=== PATIENT | female | born 1950 | race Caucasian/White ===

== ENCOUNTER 2024-06-23 05:37 | Inpatient (IN) | payer BC, MEDICARE ==
[2024-06-23 06:21] LABS: Basophils % (A) 0 %; Eosinophils # (A) 0.1 k/uL (0-0.7); Eosinophils % (A) 1 %; HCT 35.9 % (34.0-46.0); HGB 11.1 gm/dL (11.4-16.0); Hypochromasia Slight; Lymphocytes # (A) 1.1 k/uL (1.0-4.8); Lymphocytes % (A) 11 %; MCH 27.6 pg (25.0-35.0); MCHC 30.8 g/dL (31.0-37.0); MCV 89.5 fL (80.0-100.0); Mean Platelet Volume 6.7; Monocytes # (A) 0.5 k/uL (0-1.0); Monocytes % (A) 5 %; Neutrophils # (A) 8.2 k/uL (1.3-7.7); Neutrophils % (A) 82 %; Platelet Count 487 k/uL (150-450); RBC 4.01 m/uL (3.80-5.40); RDW 13.6 % (11.5-15.5); WBC 10.1 k/uL (3.8-10.6)
--- NOTE | 2024-06-23 06:25 | ED ---
SOB HPI - General Source: patient Mode of arrival: EMS Limitations: no limitations - History of Present Illness MD Complaint: shortness of breath Onset/Timin -: week(s) Severity scale (1-10): 0 Consistency: constant Improves With: nothing Worsens With: nothing Associated Symptoms: denies other symptoms Treatments Prior to Arrival: none - Related Data Home Oxygen Therapy: No <Jalil Iyer - Last Filed: 06/23/24 06:49> <Yasir Salcido - Last Filed: 06/23/24 08:22> - General Chief Complaint: Shortness of Breath Stated Complaint: SOB Time Seen by Provider: 06/23/24 05:47 - History of Present Illness Initial Comments: This patient is a 74-year-old woman who presents with complaint that she has been feeling short of breath for approximately a week. Patient states that she had a colonoscopy at [facility] about 9 or 10 days ago. She states that she just has not felt right after that procedure. She she feels shortness of breath but denies fever or chills, cough, chest pain. She has noted a little bit of ankle swelling bilaterally since having the procedure. Patient does have history of smoking, currently at about 1/2 pack of cigarettes per day she states that she used to smoke more in the past. (Jalil Iyer) - Related Data Allergies Allergy/AdvReac Type Severity Reaction Status Date / Time No Known Allergies Allergy Verified 06/23/24 05:45 Review of Systems ROS Other: All systems not noted in ROS Statement are negative. Constitutional: Denies: fever, chills, weakness ENT: Denies: congestion Respiratory: Reports: dyspnea. Denies: cough, hemoptysis Cardiovascular: Reports: edema. Denies: chest pain, palpitations, orthopnea, syncope Gastrointestinal: Denies: abdominal pain, vomiting, diarrhea, melena, hematochezia Genitourinary: Denies: dysuria, hematuria Musculoskeletal: Denies: back pain Skin: Denies: rash Neurological: Denies: headache, weakness <Jalil Iyer - Last Filed: 06/23/24 06:49> ROS Other: All systems not noted in ROS Statement are negative. <Yasir Salcido - Last Filed: 06/23/24 08:22> ROS Statement: Those systems with pertinent positive or pertinent negative responses have been documented in the HPI. Past Medical History Past Medical History: Coronary Artery Disease (CAD) History of Any Multi-Drug Resistant Organisms: None Reported Past Psychological History: No Psychological Hx Reported Smoking Status: Current some day smoker Past Alcohol Use History: None Reported Past Drug Use History: None Reported <Jalil Iyer - Last Filed: 06/23/24 06:49> General Exam Limitations: no limitations General appearance: alert, in no apparent distress Head exam: Present: atraumatic, normocephalic Eye exam: Present: normal appearance. Absent: scleral icterus, conjunctival injection Neck exam: Present: normal inspection Respiratory exam: Present: wheezes, decreased breath sounds. Absent: respiratory distress, rales, rhonchi, stridor, chest wall tenderness, accessory muscle use, prolonged expiratory Cardiovascular Exam: Present: regular rate, normal rhythm, normal heart sounds. Absent: systolic murmur, diastolic murmur, rubs, gallop GI/Abdominal exam: Present: soft. Absent: distended, tenderness, guarding, rebound, rigid, mass Extremities exam: Present: normal inspection, normal capillary refill. Absent: pedal edema, calf tenderness Back exam: Present: normal inspection. Absent: CVA tenderness (R), CVA tenderness (L) Neurological exam: Present: alert Skin exam: Present: warm, dry, intact, normal color. Absent: rash <Jalil Iyer Last Filed: 06/23/24 06:49> Course Vital Signs 06/23/24 06/23/24 06/23/24 05:38 06:53 07:00 Temperature 98.1 F Pulse Rate 83 79 77 Respiratory 24 Rate Blood Pressure 175/90 O2 Sat by Pulse 98 Oximetry 06/23/24 06/23/24 07:57 07:58 Temperature Pulse Rate 90 Respiratory 16 Rate Blood Pressure 139/68 O2 Sat by Pulse 91 L 95 Oximetry Medical Decision Making - Lab Data Result diagrams: 06/23/24 06:14 06/23/24 06:14 - EKG Data -: EKG Interpreted by Ut EKG shows normal: sinus rhythm, axis (Normal), intervals (Normal), QRS complexes (Normal), ST-T waves (Normal) Rate: normal (Rate 77 bpm) <JaylonJalil Last Filed: 06/23/24 06:49> - Lab Data Result diagrams: 06/23/24 06:14 06/23/24 06:14 <Yasir Salcido - Last Filed: 06/23/24 08:22> - Medical Decision Making The patient had chest x-ray that I interpreted as being negative for acute infiltrate, pneumothorax, congestive heart failure. The x-ray does demonstrate COPD. (Jalil Iyer) Was pt. sent in by a medical professional or institution (MATTI Hoover, SALES CLERK SUPERVISOR, urgent care, hospital, or snf...) When possible be specific @ -No Did you speak to anyone other than the patient for history (EMS, parent, family, police, friend...)? What history was obtained from this source @ -No Did you review nursing and triage notes (agree or disagree)? Why? @ -I reviewed and agree with nursing and triage notes Were old charts reviewed (outside hosp., previous admission, EMS record, old EKG, old radiological studies, urgent care reports/EKG's, snf records)? Report findings @ -No old charts were reviewed Differential Dyspnea: Coronary syndrome, arrhythmia, tamponade, asthma, COPD, pulmonary embolism, pneumonia, pneumothorax, pulmonary effusion, anaphylaxis, diabetic ketoacidosis, flailed chest, pulmonary contusion, diaphragmatic rupture, anemia, neuromus cular, this is not meant to be an all-inclusive list. EKG interpreted by me (3pts min.). @ -As above X-rays interpreted by me (1pt min.). @ -None done CT interpreted by me (1pt min.). @CT angiography is negative for pulmonary embolism, shows emphysema as well as moderate fluid overload and right lower lung mass. U/S interpreted by me (1pt. min.). @ -None done What testing was considered but not performed or refused? (CT, X-rays, U/S, labs)? Why? @ -None What meds were considered but not given or refused? Why? @ -None Did you discuss the management of the patient with other professionals (professionals i.e. MATTI Hoover, SALES CLERK SUPERVISOR, lab, RT, psych nurse, social work administrator, intelligence director, teacher, chairman president and chief executive officer, director of casework department)? Give summary @ Dr. Morel Was smoking cessation discussed for >3mins.? @ -No Was critical care preformed (if so, how long)? @ -No Were there social determinants of health that impacted care today? How? (Homelessness, low income, unemployed, alcoholism, drug addiction, transpor tation, low edu. Level, literacy, decrease access to med. care, ch[facility], rehab)? @ -No Was there de-escalation of care discussed even if they declined (Discuss DNR or withdrawal of care, Hospice)? DNR status @ -No What co-morbidities impacted this encounter? (DM, HTN, Smoking, COPD, CAD, Cancer, CVA, ARF, Chemo, Hep., AIDS, mental health diagnosis, sleep apnea, morbid obesity)? @ -None Was patient admitted / discharged? Hospital course, mention meds given and route, prescriptions, significant lab abnormalities, going to OR and other pertinent info. @ -Care was signed out at shift change awaiting CT angiography results are negative for pulmonary embolism does show COPD CHF and lung mass. Patient has an elevated troponin which will require trending. She has an elevated BNP and evidence of CHF as well as COPD. Should be admitted for both COPD, CHF as well as this lung mass. Cardiology and pulmonology placed on consult. Undiagnosed new problem with uncertain prognosis? @ -No Drug Therapy requiring intensive monitoring for toxicity (Heparin, Nitro, Insulin, Cardizem)? @ -No Were any procedures done? @ -No Diagnosis/symptom? @ -COPD, CHF, lung mass Acute, or Chronic, or Acute on Chronic? @ -acute Uncomplicated (without systemic symptoms) or Complicated (systemic symptoms)? @ -Default Side effects of treatment? @ -No Exacerbation, Progression, or Severe Exacerbation? @ -No Poses a threat to life or bodily function? How? (Chest pain, USA, MD, pneumonia, PE, COPD, DKA, ARF, appy, cholecystitis, CVA, Diverticulitis, Homicidal, Suicidal, threat to staff... and all critical care pts) @ -[Yes, respiratory failure, COPD, CHF (Yasir Salcido) - Lab Data Lab Results 06/23/24 06/23/24 06/23/24 Range/Units 06:14 06:14 06:14 WBC 10.1 (3.8-10.6) k/uL RBC 4.01 (3.80-5.40) m/uL Hgb 11.1 L (11.4-16.0) gm/dL Hct 35.9 (34.0-46.0) % MCV 89.5 (80.0-100.0) fL MCH 27.6 (25.0-35.0) pg MCHC 30.8 L (31.0-37.0) g/dL RDW 13.6 (11.5-15.5) % Plt Count 487 H (150-450) k/uL MPV 6.7 Neutrophils % 82 % Lymphocytes % 11 % Monocytes % 5 % Eosinophils % 1 % Basophils % 0 % Neutrophils # 8.2 H (1.3-7.7) k/uL Lymphocytes # 1.1 (1.0-4.8) k/uL Monocytes # 0.5 (0-1.0) k/uL Eosinophils # 0.1 (0-0.7) k/uL Basophils # 0.0 (0-0.2) k/uL Hypochromasia Slight PT 10.2 (10.0-12.5) sec INR 0.9 (<1.2) APTT 23.3 (22.0-30.0) sec D-Dimer 2.08 H (<0.60) mg/L FEU Sodium 137 (137-145) mmol/L Potassium 3.8 (3.5-5.1) mmol/L Chloride 101 (98-107) mmol/L Carbon Dioxide 35 H (22-30) mmol/L Anion Gap 1 mmol/L BUN 12 (7-17) mg/dL Creatinine 0.58 (0.52-1.04) mg/dL Est GFR (CKD-EPI)AfAm >90 (>60 ml/min/1.73 sqM) Est GFR (CKD-EPI)NonAf >90 (>60 ml/min/1.73 sqM) Glucose 94 (74-99) mg/dL Plasma Lactic Acid Alfred (0.7-2.0) mmol/L Calcium 8.4 (8.4-10.2) mg/dL Magnesium 1.3 L (1.6-2.3) mg/dL Total Bilirubin 0.5 (0.2-1.3) mg/dL AST 44 H (14-36) U/L ALT 39 H (4-34) U/L Alkaline Phosphatase 68 (38-126) U/L Troponin I (0.000-0.034) ng/mL NT-Pro-B Natriuret Pep 3640 pg/mL Total Protein 5.3 L (6.3-8.2) g/dL Albumin 2.9 L (3.5-5.0) g/dL 06/23/24 06/23/24 Range/Units 06:14 06:14 WBC (3.8-10.6) k/uL RBC (3.80-5.40) m/uL Hgb (11.4-16.0) gm/dL Hct (34.0-46.0) % MCV (80.0-100.0) fL MCH (25.0-35.0) pg MCHC (31.0-37.0) g/dL RDW (11.5-15.5) % Plt Count (150-450) k/uL MPV Neutrophils % % Lymphocytes % % Monocytes % % Eosinophils % % Basophils % % Neutrophils # (1.3-7.7) k/uL Lymphocytes # (1.0-4.8) k/uL Monocytes # (0-1.0) k/uL Eosinophils # (0-0.7) k/uL Basophils # (0-0.2) k/uL Hypochromasia PT (10.0-12.5) sec INR (<1.2) APTT (22.0-30.0) sec D-Dimer (<0.60) mg/L FEU Sodium (137-145) mmol/L Potassium (3.5-5.1) mmol/L Chloride (98-107) mmol/L Carbon Dioxide (22-30) mmol/L Anion Gap mmol/L BUN (7-17) mg/dL Creatinine (0.52-1.04) mg/dL Est GFR (CKD-EPI)AfAm (>60 ml/min/1.73 sqM) Est GFR (CKD-EPI)NonAf (>60 ml/min/1.73 sqM) Glucose (74-99) mg/dL Plasma Lactic Acid Alfred 0.8 (0.7-2.0) mmol/L Calcium (8.4-10.2) mg/dL Magnesium (1.6-2.3) mg/dL Total Bilirubin (0.2-1.3) mg/dL AST (14-36) U/L ALT (4-34) U/L Alkaline Phosphatase (38-126) U/L Troponin I 0.047 H* (0.000-0.034) ng/mL NT-Pro-B Natriuret Pep pg/mL Total Protein (6.3-8.2) g/dL Albumin (3.5-5.0) g/dL Disposition <Jalil Iyer - Last Filed: 06/23/24 06:49> Is patient prescribed a controlled substance at d/c from ED?: No Time of Disposition: 08:22 <Yasir Salcido - Last Filed: 06/23/24 08:22> Clinical Impression: Congestive heart failure, Acute exacerbation of chronic obstructive pulmonary disease Disposition: ADMITTED IP TO THIS HOSP Condition: Stable Referrals: None,Stated [Primary Care Provider] - 1-2 days
[2024-06-23 06:32] LABS: ALT 39 U/L (4-34); AST 44 U/L (14-36); African American GFR (CKD) >90 (>60 ml/min/1.73 sqM); Albumin 2.9 g/dL (3.5-5.0); Alkaline Phosphatase 68 U/L (38-126); Anion Gap 1 mmol/L; Blood Urea Nitrogen 12 mg/dL (7-17); Calcium 8.4 mg/dL (8.4-10.2); Carbon Dioxide 35 mmol/L (22-30); Chloride 101 mmol/L (98-107); Glucose 94 mg/dL (74-99); Magnesium 1.3 mg/dL (1.6-2.3); Non-African American GFR(CKD) >90 (>60 ml/min/1.73 sqM); Potassium 3.8 mmol/L (3.5-5.1); Sodium 137 mmol/L (137-145); Total Bilirubin 0.5 mg/dL (0.2-1.3); Total Protein 5.3 g/dL (6.3-8.2)
[2024-06-23 06:35] LABS: INR 0.9 (<1.2); Partial Thromboplastin Time 23.3 sec (22.0-30.0); Prothrombin Time 10.2 sec (10.0-12.5)
[2024-06-23 06:41] LABS: NT-Pro-B-Type Natriuretic Pept 3640 pg/mL
[2024-06-23] MEDS: ALBUTEROL NEBULIZED 2.5 MG/3 ML INHALATION STA (06:51)
[2024-06-23] MEDS: IPRATROPIUM 0.5 MG/2.5 ML NEBU INHALATION STA (06:52)
--- NOTE | 2024-06-23 06:57 | XR ---
EXAMINATION TYPE: XR chest 2V DATE OF EXAM: 06/23/2024 COMPARISON: NONE HISTORY: Difficulty in breathing. TECHNIQUE: Frontal and lateral views of the chest are obtained. FINDINGS: There is mild cardiomegaly with small to tiny bilateral pleural effusions. Overlying tiny rnal wires and mediastinal clips are present. No suspicious focal airspace opacity or pneumothorax se en bilaterally. The osseous structures are intact. IMPRESSION: Findings consistent with CHF exacerbation/fluid overload state. [facility], , 06/23/2024 6:54 AM
[2024-06-23] MEDS: NITROGLYCERIN SL TABS 0.4 MG TAB SUBLINGUAL STA (07:01)
[2024-06-23] MEDS: FUROSEMIDE 10 MG/ML 2 ML VIAL IV STA (07:04)
--- NOTE | 2024-06-23 07:59 | CT ---
EXAMINATION TYPE: CT chest angio for PE DATE OF EXAM: 06/23/2024 COMPARISON: Radiographs same day HISTORY: 74-year-old female with shortness of breath, Dyspnea, possible pe TECHNIQUE: Contiguous axial scanning of the chest performed with IV Contrast, patient injected with 1 00 ml mL of Isovue 370. Coronal/sagittal MIP reconstructions performed. CT DLP: 166.8 mGycm Automated exposure control for dose reduction was used. FINDINGS: Median sternotomy wires are present post CABG changes. There is prominent generalized anasarca changes with body wall edema. Some additional edema within th e anterior mediastinal fat Heart is normal size without flattening of the interventricular septum. There is some refluxing contr ast into the IVC and hepatic veins. Scattered [id number] atherosclerotic calcifications throughout the thoracic aorta with conventi onal arch vessel branching anatomy. No progressive lymphadenopathy by size criteria. Satisfactory opacification of the pulmonary arterial system without evidence for pulmonary embolus. Advanced emphysematous change. Small bilateral pleural effusions with some adjacent atelectasis at th e costophrenic angles. There is a spiculated appearing nodule posterior basilar right lower lobe measuring 2.0 cm for which neoplasm should be excluded. Additional anasarca changes throughout the visualized upper abdomen. Severe atherosclerotic calcifica tions at the SMA. No enhancing lumen is identified. Bones: No osseous destructive process. IMPRESSION: 1. NO EVIDENCE FOR PULMONARY EMBOLUS. 2. 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 BACKGROUND COPD WITH SEVERE EMPHYSEMA. 3 MARKED GENERALIZED ANASARCA CHANGE ALONG WITH SMALL BILATERAL PLEURAL EFFUSIONS. CORRELATE FOR FLUI D OVERLOAD STATE/MILD CHF. 4. ATHEROSCLEROTIC CALCIFICATIONS CAUSING POSSIBLE SEVERE STENOSIS OR OCCLUSION AT THE SMA INCIDENTAL LY SEEN. [facility], , 06/23/2024 7:57 AM
[2024-06-23] MEDS ORDERED: NALOXONE 0.4 MG/ML 1 ML VIAL IVP PRN (08:16)
[2024-06-23] MEDS ORDERED: IPRATROPIUM-ALBUTEROL 3 ML NEB INHALATION PRN (08:16)
[2024-06-23] MEDS ORDERED: ACETAMINOPHEN TAB 325 MG TAB PO PRN (08:16)
[2024-06-23] MEDS: AZITHROMYCIN 500 MG TAB PO SCH (08:38)
--- NOTE | 2024-06-23 10:00 | P.HPIM ---
History of Present Illness 74-year-old female came in with complaints of shortness of breath has been going on for about a week on and off. Patient denying orthopnea paroxysmal nocturnal dyspnea. Patient does smoke presently smokes about 10 cigarettes/day. Clinical exam patient does not have any significant wheezing although diminished air entry to bilateral lung patel. Patient had a CT of the chest which showed bilateral pleural effusions mild pulmonary edema patient has a BNP of 43,000. 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 Patient is also found to have a 2 cm nodule/mass in the lung. No pneumonia on the chest x- ray or CT of the chest. Patient does not use any oxygen at home presently on 2 L of oxygen here REVIEW OF SYSTEMS: All other systems are negative except those mentioned in the HPI PHYSICAL EXAMINATION: GENERAL: The patient is alert and oriented x3, not in any acute distress. Thin built female HEENT: Pupils are round and equally reacting to light. EOMI. No scleral icterus. No conjunctival pallor. Normocephalic, atraumatic. No pharyngeal erythema. No thyromegaly. CARDIOVASCULAR: S1 and S2 present. No murmurs, rubs, or gallops. PULMONARY: Chest is clear to auscultation, no wheezing or crackles. Diminished air entry to bilateral lung patel. ABDOMEN: Soft, nontender, nondistended, normoactive bowel sounds. No palpable organomegaly. MUSCULOSKELETAL: No joint swelling or deformity. EXTREMITIES: No cyanosis, clubbing, or pedal edema. NEUROLOGICAL: Gross neurological examination did not reveal any focal deficits. SKIN: No rashes. Assessment and plan -Acute hypoxemia: Possibly of congestive heart failure mild acute exacerbation cardiology evaluate the patient on the liberation of echocardiogram to c ardiology patient started on 20 mg of Lasix twice a day which will be continued as there is a low possibility of COPD patient will be switched to oral steroids continue with inhalational treatments. -2 cm nodule/mass pulmonary was consulted for this reason although patient was made aware of this nodule at [facility] -Coronary disease patient will be resumed on home medications -Mild elevation of troponin second set of troponin is within normal limits possibility of type I myocardial infarction or type I NSTEMI cannot be ruled out further management as per cardiology -He continues: Counseling was provided DVT prophylaxis: Lovenox text Past Medical History Past Medical History: Coronary Artery Disease (CAD) History of Any Multi-Drug Resistant Organisms: None Reported Past Psychological History: No Psychological Hx Reported Smoking Status: Current some day smoker Past Alcohol Use History: None Reported Past Drug Use History: None Reported Medications and Allergies Home Medications Medication Instructions Recorded Confirmed Type Aspirin EC [Ecotrin Low Dose] 81 mg PO DAILY 06/23/24 06/23/24 History Atorvastatin Calcium [Lipitor] 80 mg PO HS 06/23/24 06/23/24 History Clopidogrel [Plavix] 75 mg PO DAILY 06/23/24 06/23/24 History Losartan [Cozaar] 50 mg PO DAILY 06/23/24 06/23/24 History Metoprolol Tartrate [Lopressor] 50 mg PO BID 06/23/24 06/23/24 History Pantoprazole [Protonix] 40 mg PO DAILY 06/23/24 06/23/24 History Allergies Allergy/AdvReac Type Severity Reaction Status Date / Time No Known Allergies Allergy Verified 06/23/24 09:03 Physical Exam Vitals: Vital Signs Temp Pulse Resp BP Pulse Ox 06/23/24 09:19 95 18 131/82 96 06/23/24 07:58 95 06/23/24 07:57 90 16 139/68 91 L 06/23/24 07:00 77 06/23/24 06:53 79 06/23/24 05:38 98.1 F 83 24 175/90 98 Intake and Output 06/22/24 06/23/24 06/23/24 22:59 06:59 14:59 Other: Weight 37.648 kg Results CBC & Chem 7: 06/23/24 06:14 06/23/24 06:14 Labs: Abnormal Lab Results - Last 24 Hours (Table) 06/23/24 06/23/24 06/23/24 Range/Units 06:14 06:14 06:14 Hgb 11.1 L (11.4-16.0) gm/dL MCHC 30.8 L (31.0-37.0) g/dL Plt Count 487 H (150-450) k/uL Neutrophils # 8.2 H (1.3-7.7) k/uL D-Dimer 2.08 H (<0.60) mg/L FEU Carbon Dioxide 35 H (22-30) mmol/L Magnesium 1.3 L (1.6-2.3) mg/dL AST 44 H (14-36) U/L ALT 39 H (4-34) U/L Troponin I (0.000-0.034) ng/mL Total Protein 5.3 L (6.3-8.2) g/dL Albumin 2.9 L (3.5-5.0) g/dL 06/23/24 Range/Units 06:14 Hgb (11.4-16.0) gm/dL MCHC (31.0-37.0) g/dL Plt Count (150-450) k/uL Neutrophils # (1.3-7.7) k/uL D-Dimer (<0.60) mg/L FEU Carbon Dioxide (22-30) mmol/L Magnesium (1.6-2.3) mg/dL AST (14-36) U/L ALT (4-34) U/L Troponin I 0.047 H* (0.000-0.034) ng/mL Total Protein (6.3-8.2) g/dL Albumin (3.5-5.0) g/dL
[2024-06-23] MEDS: ASPIRIN 81 MG PO SCH (10:27)
[2024-06-23] MEDS: METOPROLOL TARTRATE 50 MG TAB PO SCH (10:27)
[2024-06-23] MEDS: LOSARTAN 50 MG TAB PO SCH (10:27)
[2024-06-23] MEDS: PANTOPRAZOLE 40 MG TABLET PO SCH (10:58)
[2024-06-23] MEDS: IPRATROPIUM-ALBUTEROL 3 ML NEB INHALATION SCH (11:49)
[2024-06-23] MEDS ORDERED: methylPREDNISolone SOD SUCCI 125 MG/2 ML VIAL IV SCH (12:00)
--- NOTE | 2024-06-23 13:14 | CDI ---
Documentation Clarification Form Date: 06/23/2024 01:01:44 PM From: Lashaun Ya RN CCDS Phone: [phone] Admit Date: 06/23/2024 08:17:00 AM Patient Name: Kalina Brink Visit Number: [id number] Discharge Date: ATTENTION: The Clinical Documentation Specialists (CDI) and [facility] Coding Staff appreciate your assistance in clarifying documentation. Please respond to the clarification below the line at the bottom and electronically sign. The CDI & [facility] Coding staff will review the response and follow-up if needed. Please note: Queries are made part of the Legal Health Record. If you have any questions, please contact the author of this message via ITS. Dr. Keyona Morel Your patient has hypoxemia documented in the HP, 06/23. Based on this information and the findings below, is there an additional diagnosis that is clinically appropriate for this patient? History/Risk Factors: Tobacco use: History of smoking, currently at about pack of cigarettes per day she states that she used to smoke more in the past Clinical Indicators: Vital signs: 06/23 07:57 B/P 139/68; HR 90; RR 16; SpO2 91% ra 06/23 07:58 SpO2 95% 3L nasal cannula Lung/Breathing assessment: 06/23, HP: Chest is clear to auscultation, no wheezing or crackles. Diminished air entry to bilateral lung patel. Treatment: Prednisone po daily Breathing tx 06/23 Ventolin Inhalation x1; 06/23 Atrovent Nebulized Inhalation x 1; 06/23 Duoneb Inhalation Q2H PRN; 06/23 Duoneb Inhalation QID JACK; O2: VIA Nasal cannula 3 2 L Is there an additional diagnosis that is clinically appropriate for this patient? [ ] Acute Hypoxic Respiratory Failure [x ] No additional diagnosis/not clinically significant [ ] Other Diagnosis, please specify [ ] Unable to determine (Template Last Revised: August 2023) MTDD
--- NOTE | 2024-06-23 13:15 | P.CRDCN ---
History of Present Illness History of present illness: HISTORY OF PRESENT ILLNESS: This is a 74-year-old female with a past medical history significant for coronary artery disease with previous stenting and CABG, hypertension, hyperlipidemia, and COPD. Patient follows with a precision inspector out of town, Dr. Bran Brink at [facility]. We have been asked to see the patient in consultation for CHF. Patient examined at the bedside. Patient presented to the hospital with a chief complaint of shortness of breath. Patient states she has been feeling short of breath for approximately a day and a half. She reports chills but no fever. She denies any chest pain or pressure. Denies any dizziness or lightheadedness. The patient is a current cigarette smoker and smokes about a half a pack per day. DIAGNOSTICS: - EKG reveals sinus mechanism with no signs of acute ischemia. Nonspecific ST-T wave changes. - Chest xray findings consistent with CHF exacerbation/fluid overload state - Chest CTA: Negative for pulmonary embolism. 2 cm right lower lobe nodule, marked generalized anasarca with small bilateral pleural effusions. - Laboratory data: WBC 10.1. Hemoglobin 11.1. Platelet count 487. D-dimer 2.08. Sodium 137. Potassium 3.8. BUN 12. Creatinine 0.58. Troponin 0.047. 0.031. proBNP 3640. - Current home cardiac medications include aspirin 81 mg daily, Plavix 75 mg daily, losartan 50 mg daily, Lipitor 80 mg at night, metoprolol tartrate 50 mg twice a day -No previous echocardiogram, stress test, or cardiac catheterization available in EMR for review REVIEW OF SYSTEMS: At the time of my exam: CONSTITUTIONAL: Denies fever or chills. HEENT: Denies blurred vision, vision changes, or eye pain. Denies hemoptysis CARDIOVASCULAR: Denies chest pain. Denies orthopnea. Denies PND. Denies palpitations RESPIRATORY: Denies shortness of breath. GASTROINTESTINAL: Denies abdominal pain. Denies nausea or vomiting. HEMATOLOGIC: Denies bleeding disorders. GENITOURINARY: Denies any blood in urine. SKIN: Denies pruitis. Denies rash. PHYSICAL EXAM: VITAL SIGNS: Reviewed. GENERAL: Well-developed in no acute distress. HEENT: Head is normocephalic. Pupils are equal, round. Sclerae anicteric. Mucous membranes of the mouth are moist. Neck supple. No JVD or thyromegaly LUNGS: Respirations even and unlabored. Lungs diminished with fine crackles at the bases HEART: Regular rate and rhythm. S1 and S2 heard. ABDOMEN: Soft. Nondistended. Nontender. EXTREMITIES: Normal range of motion. No clubbing or cyanosis. Peripheral pulses intact. Trace bilateral lower extremity edema NEUROLOGIC: Awake and alert. Oriented x 3. ASSESSMENT: Shortness of breath Mild acute congestive heart failure, type unknown, echo pending 2 cm right lower lobe lung nodule Minimally elevated troponin, type II NM secondary to oxygen supply/demand mismatch, no evidence of acute coronary syndrome Coronary artery disease with previous stenting and CABG Hypertension Hyperlipidemia COPD Nicotine dependence, patient smokes half a pack per day PLAN: Obtain 2D echo to assess cardiac structure and function Continue IV Lasix 20 mg every 12 hours Daily weights, accurate intake and output, and monitoring of kidney function Resume home cardiac medications Hold Plavix pending pulmonary consultation for lung mass Continue telemetry monitoring Smoking cessation recommended. Patient to be referred to [place] quit line upon discharge. Further recommendations pending patient course Nurse practitioner note has been reviewed by physician. Signing provider agrees with the documented findings, assessment, and plan of care documented by MEDICAL ACCOUNTANT as a scribe. Past Medical History Past Medical History: Coronary Artery Disease (CAD) History of Any Multi-Drug Resistant Organisms: None Reported Past Psychological History: No Psychological Hx Reported Smoking Status: Current some day smoker Past Alcohol Use History: None Reported Past Drug Use History: None Reported Medications and Allergies Home Medications Medication Instructions Recorded Confirmed Type Aspirin EC [Ecotrin Low Dose] 81 mg PO DAILY 06/23/24 06/23/24 History Atorvastatin Calcium [Lipitor] 80 mg PO HS 06/23/24 06/23/24 History Clopidogrel [Plavix] 75 mg PO DAILY 06/23/24 06/23/24 History Losartan [Cozaar] 50 mg PO DAILY 06/23/24 06/23/24 History Metoprolol Tartrate [Lopressor] 50 mg PO BID 06/23/24 06/23/24 History Pantoprazole [Protonix] 40 mg PO DAILY 06/23/24 06/23/24 History Allergies Allergy/AdvReac Type Severity Reaction Status Date / Time No Known Allergies Allergy Verified 06/23/24 09:03 Physical Exam Vitals: Vital Signs Temp Pulse Resp BP Pulse Ox 06/23/24 09:19 95 18 131/82 96 06/23/24 07:58 95 06/23/24 07:57 90 16 139/68 91 L 06/23/24 07:00 77 06/23/24 06:53 79 06/23/24 05:38 98.1 F 83 24 175/90 98 Intake and Output 06/22/24 06/23/24 06/23/24 22:59 06:59 14:59 Other: Weight 37.648 kg Results 06/23/24 06:14 06/23/24 06:14 Cardiac Enzymes 06/23/24 06/23/24 06/23/24 Range/Units 06:14 06:14 08:52 AST 44 H (14-36) U/L Troponin I 0.047 H* 0.031 (0.000-0.034) ng/mL Coagulation 06/23/24 Range/Units 06:14 PT 10.2 (10.0-12.5) sec APTT 23.3 (22.0-30.0) sec CBC 06/23/24 Range/Units 06:14 WBC 10.1 (3.8-10.6) k/uL RBC 4.01 (3.80-5.40) m/uL Hgb 11.1 L (11.4-16.0) gm/dL Hct 35.9 (34.0-46.0) % Plt Count 487 H (150-450) k/uL Comprehensive Metabolic Panel 06/23/24 Range/Units 06:14 Sodium 137 (137-145) mmol/L Potassium 3.8 (3.5-5.1) mmol/L Chloride 101 (98-107) mmol/L Carbon Dioxide 35 H (22-30) mmol/L BUN 12 (7-17) mg/dL Creatinine 0.58 (0.52-1.04) mg/dL Glucose 94 (74-99) mg/dL Calcium 8.4 (8.4-10.2) mg/dL AST 44 H (14-36) U/L ALT 39 H (4-34) U/L Alkaline Phosphatase 68 (38-126) U/L Total Protein 5.3 L (6.3-8.2) g/dL Albumin 2.9 L (3.5-5.0) g/dL Current Medications Generic Name Dose Route Start Last Admin Trade Name Nilam PRN Reason Stop Dose Admin Acetaminophen 650 mg 06/23/24 08:16 Acetaminophen Tab 325 Mg Tab PO Q4HR PRN Mild Pain or Fever > 100.5 Albuterol/Ipratropium 3 ml 06/23/24 08:16 Ipratropium-Albuterol 3 Ml Neb INHALATION RT-Q2H PRN Shortness Of Breath Or Wheezing Albuterol/Ipratropium 3 ml 06/23/24 12:00 Ipratropium-Albuterol 3 Ml Neb INHALATION RT-QID JACK Azithromycin 500 mg 06/23/24 09:00 06/23/24 08:38 Azithromycin 500 Mg Tab PO 06/25/24 09:01 500 mg DAILY [facility] Administration Protocol Furosemide 20 mg 06/23/24 21:00 Furosemide 10 Mg/Ml 2 Ml Vial IV Q12HR [facility] Methylprednisolone Sodium Succinate 60 mg 06/23/24 12:00 Methylprednisolone Sod Succi 125 Mg/2 Ml Vial IV Q6HR [facility] Naloxone HCl 0.2 mg 06/23/24 08:16 Naloxone 0.4 Mg/Ml 1 Ml Vial IVP Q2M PRN Opioid Reversal Intake and Output 06/22/24 06/23/24 06/23/24 22:59 06:59 14:59 Other: Weight 37.648 kg 06/23/24 06:14 06/23/24 06:14
[2024-06-23] MEDS: FUROSEMIDE 10 MG/ML 2 ML VIAL IV SCH (22:00)
[2024-06-23] MEDS: ATORVASTATIN 80 MG TAB PO SCH (22:00)
--- NOTE | 2024-06-24 05:09 | P.CNPUL ---
History of Present Illness Consult date: 06/24/24 Requesting physician: Yasir Salcido Reason for consult: other (Pulmonary nodule) Chief complaint: Shortness of breath History of present illness: Patient is 74-year-old female with past medical history significant for hypertension, hyperlipidemia, coronary artery disease with previous CABG, current ongoing tobacco dependence. Of note, recently admitted inpatient to [facility] had GI bleeding and underwent colonoscopy. Since then she has been reporting increasing shortness of breath, as well as, lower extremity edema bilaterally. Denies any history of heart failure. Denies chest pain, heart palpitations, lightheadedness or syncopal events, orthopnea, PND. Denies any infectious symptoms. Denies history of diagnosed COPD or asthma. She does have a significant smoking history of greater than 50 pack years. Chest x- ray done arrival showing a stable cardiac silhouette, mild pulmonary vascular congestion, blunting of bilateral costophrenic angles concerning for trace to small bilateral pleural effusions. NT proBNP was elevated at 3640. Troponin is also mildly elevated at 0.047, 0.03, and 0.045 respectively. EKG: Sinus rhythm, 77 bpm, no acute ischemic changes. D-dimer also elevated at 2.08. This prompted CT angio protocol which did not show any filling defects concerning for pulmonary emboli. There was a 2 cm right lower lobe spiculated nodule concer lizz for possible malignancy. Background emphysema. Also, generalized anasarca and small bilateral pleural effusions. CBC: WBC count 10, hemoglobin 11, hematocrit 35.9, platelets 47. CMP: Sodium 137, potassium 3.8, chloride 101, serum bicarb 35, BUN 12, creatinine 0.58, glucose 94. Lactic 0.8. Magnesium 1.3. Patient is currently being evaluated on selective care unit. She is on 2 L/min nasal cannula in no acute respiratory distress. SpO2 95%. Vital signs are stable. I did speak to her at length about the abnormal CAT scan findings and concern for possible malignancy. She reports a 50 pound weight loss over the last couple years. Has significant smoking history as stated above. She states that even if it were malignancy that she is unsure if she would want to have any bronchoscopy with biopsy or treatment. She would like to think about this. Unfortunately, her approximately 1 week ago. She is a bit overwhelmed. In the meantime she continues on Lasix 20 mg twice daily. She likely has some undiagnosed COPD. Appears stable on my examination. She is empirically covered on azithromycin. Review of Systems Constitutional: Reports poor appetite, Reports weight gain, Denies chills, Denies fever, Denies weight loss Ears, nose, mouth and throat: Denies headache, Denies nasal congestion, Denies nasal discharge, Denies post-nasal drip, Denies sinus pain, Denies sinus pressure, Denies sore throat Cardiovascular: Reports decreased exercise tolerance, Reports leg edema, Reports orthopnea, Denies chest pain, Denies palpitations, Denies syncope Respiratory: Denies as per HPI Gastrointestinal: Denies abdominal pain, Denies change in bowel habits, Denies diarrhea, Denies loss of appetite, Denies nausea, Denies vomiting Genitourinary: Denies dysuria Musculoskeletal: Denies limitation of motion Integumentary: Denies rash Neurological: Denies seizures, Denies syncope Psychiatric: Reports depression, Denies anxiety, Denies suicidal ideation Past Medical History Past Medical History: Coronary Artery Disease (CAD), Hyperlipidemia, Hypertension History of Any Multi-Drug Resistant Organisms: None Reported Past Surgical History: Heart Catheterization With Stent, Orthopedic Surgery Past Anesthesia/Blood Transfusion Reactions: No Reported Reaction Date of Last Stent Placement:: 2019 Past Psychological History: No Psychological Hx Reported Smoking Status: Current every day smoker Past Alcohol Use History: None Reported Past Drug Use History: None Reported Medications and Allergies Home Medications Medication Instructions Recorded Confirmed Type Aspirin EC [Ecotrin Low Dose] 81 mg PO DAILY 06/23/24 06/23/24 History Atorvastatin Calcium [Lipitor] 80 mg PO HS 06/23/24 06/23/24 History Clopidogrel [Plavix] 75 mg PO DAILY 06/23/24 06/23/24 History Losartan [Cozaar] 50 mg PO DAILY 06/23/24 06/23/24 History Metoprolol Tartrate [Lopressor] 50 mg PO BID 06/23/24 06/23/24 History Pantoprazole [Protonix] 40 mg PO DAILY 06/23/24 06/23/24 History Allergies Allergy/AdvReac Type Severity Reaction Status Date / Time No Known Allergies Allergy Verified 06/23/24 09:03 Physical Exam Vitals: Vital Signs Temp Pulse Pulse Resp BP BP Pulse Ox 06/23/24 20:26 98.3 F 86 19 130/65 95 06/23/24 20:06 98.2 F 79 18 145/71 100 06/23/24 20:01 75 20 06/23/24 20:00 86 20 06/23/24 19:54 76 20 06/23/24 16:40 71 06/23/24 16:09 74 06/23/24 12:58 73 20 138/88 94 L 06/23/24 11:59 65 06/23/24 11:49 68 97 06/23/24 10:59 98.1 F 89 18 132/84 96 06/23/24 09:19 95 18 131/82 96 06/23/24 07:58 95 06/23/24 07:57 90 16 139/68 91 L 06/23/24 07:00 77 06/23/24 06:53 79 06/23/24 05:38 98.1 F 83 24 175/90 98 Intake and Output 06/23/24 06/23/24 06/24/24 14:59 22:59 06:59 Other: Voiding Method Toilet Weight 37.648 kg GENERAL EXAM: Alert, 74-year-old white female, frail, comfortable in no apparent distress. HEAD: Normocephalic and atraumatic EYES: Normal reaction of pupils, equal size. NOSE: Clear with pink turbinates. THROAT: No erythema or exudates. NECK: No masses, no JVD. CHEST: No chest wall deformity. LUNGS: Equal air entry with diminished lung sounds throughout, inspiratory left basilar crackles. On 2 L/min nasal cannula no conversational dyspnea or accessory muscle use.. CVS: S1 and S2 normal with no audible murmur, regular rhythm. No extra heart sounds ABDOMEN: No hepatosplenomegaly, active bowel sounds, no guarding or rigidity. SPINE: No scoliosis or deformity SKIN: No rashes CENTRAL NERVOUS SYSTEM: No focal deficits, tone is normal in all 4 extremities. EXTREMITIES: There is 2+ bilateral lower extremity edema. No clubbing or cyanosis. Peripheral pulses are intact. Results - Laboratory Findings CBC and BMP: 06/23/24 06:14 06/23/24 06:14 PT/INR, D-dimer PT 10.2 sec (10.0-12.5) 06/23/24 06:14 INR 0.9 (<1.2) 06/23/24 06:14 D-Dimer 2.08 mg/L FEU (<0.60) H 06/23/24 06:14 Abnormal lab findings: Abnormal Labs 06/23/24 06/23/24 06/23/24 06:14 06:14 06:14 Hgb 11.1 L MCHC 30.8 L Plt Count 487 H Neutrophils # 8.2 H D-Dimer 2.08 H Carbon Dioxide 35 H Magnesium 1.3 L AST 44 H ALT 39 H Troponin I Total Protein 5.3 L Albumin 2.9 L 06/23/24 06/23/24 06:14 15:09 Hgb MCHC Plt Count Neutrophils # D-Dimer Carbon Dioxide Magnesium AST ALT Troponin I 0.047 H* 0.045 H* Total Protein Albumin - Diagnostic Findings Chest x-ray: image reviewed Assessment and Plan Assessment: Acute hypoxemic respiratory failure, currently on 2 L/min nasal cannula, chest x-ray done on admission showing stable cardiac silhouette, pulmonary vascular congestion, and small bilateral pleural effusions. NT proBNP 3640 Suspect acute exacerbation of congestive heart failure, unknown type Elevated troponins, rule out non-ST elevation FL Possible acute COPD exacerbation Chronic ongoing tobacco dependence, with a significant smoking history of 50 pack years Pulmonary nodule, 2 cm spiculated right lower lobe nodule, concerning for poss ible malignancy Hypomagnesemia, being replaced per protocol History of coronary artery disease with previous CABG History of hyperlipidemia Hypertension History of GI bleed with recent colonoscopy Bereavement and recent of spouse Plan: Patient's medications, labs, chest x-ray reviewed Continue on supplemental oxygen maintain oxygen saturation of 92% or greater Continue Lasix 20 mg twice daily Transthoracic echocardiogram pending COPD appears relatively stable on my examination; however, has already started treatment. Continue on a combination of bronchodilators and prednisone burst taper. Add steroid inhaler. Azithromycin was started in the ED check procalcitonin level Smoking cessation counseling performed greater than 3 minutes. Nicotine patch offered. I did discuss patient's CT findings and concerns for possible malignancy. She is unsure whether she would like any diagnostic procedures at this time. She would like to think about this. She is overwhelmed by the recent of her spouse. This will be further discussed with Dr. Moran later today. Monitor and replace electrolytes per protocol GI prophylaxis Protonix We will continue to follow, additional recommendations to follow I have personally seen and examined the patient, performed the documentation and the assessment and plan as written. Number of minutes spent on the visit:20 Time with Patient: Greater than 30
[2024-06-24] MEDS: MAGNESIUM SULFATE-D5W PMX 1 GM in DEXTROSE/WATER 1 100ML.BAG IVPB SCH (05:32)
[2024-06-24 08:02] LABS: African American GFR (CKD) >90 (>60 ml/min/1.73 sqM); Blood Urea Nitrogen 11 mg/dL (7-17); Calcium 8.1 mg/dL (8.4-10.2); Chloride 92 mmol/L (98-107); Glucose 105 mg/dL (74-99); Non-African American GFR(CKD) >90 (>60 ml/min/1.73 sqM); Potassium 3.2 mmol/L (3.5-5.1); Sodium 135 mmol/L (137-145)
[2024-06-24 08:09] LABS: Anion Gap 8 mmol/L; Carbon Dioxide 35 mmol/L (22-30)
[2024-06-24] MEDS: SYMBICORT 160-4.5 MCG INHALER INHALATION SCH (08:40)
[2024-06-24] MEDS: FUROSEMIDE 20 MG TAB PO SCH (09:52)
[2024-06-24] MEDS: ENOXAPARIN 30 MG/0.3 ML SYRINGE SQ SCH (09:53)
[2024-06-24] MEDS: predniSONE 20 MG TAB PO SCH (09:53)
[2024-06-24] MEDS: NICOTINE 21MG/24HR PATCH TRANSDERM SCH (09:54)
--- NOTE | 2024-06-24 11:03 | CA ---
Transthoracic Echo Report Name: Kalina Brink Age: 74 Gender: F : 1950 Exam Date: 06/24/2024 08:33 Exam Location: [facility] Ht (in): 64 Wt (lb): 83 Ordering Physician: Joellen Balderas Attending/Referring Phys: [id number], Andrey Housing Assistant Property Manager Keisha Toscano RDCS Procedure CPT: Indications: CHF, LVF Cardiac Hx: Technical Quality: Good Contrast 1: Total Dose (mL): Contrast 2: Total Dose (mL): MEASUREMENTS (Male / Female) Normal Values 2D ECHO LV Diastolic Diameter PLAX 3.6 cm 4.2 - 5.9 / 3.9 - 5.3 cm LV Systolic Diameter PLAX 2.5 cm IVS Diastolic Thickness 0.8 cm 0.6 - 1.0 / 0.6 - 0.9 cm LVPW Diastolic Thickness 0.9 cm 0.6 - 1.0 / 0.6 - 0.9 cm LV Relative Wall Thickness 0.5 LVOT Diameter 1.9 cm LV Diastolic Volume MOD BP 65.5 cm??? 67 - 155 / 56 - 104 cm??? LV Systolic Volume MOD BP 24.1 cm??? 22 - 58 / 19 - 49 cm??? LV Ejection Fraction MOD BP 63.2 % >= 55 % LV Cardiac Index MOD BP 2029.7 cm???/min???m??? LV Diastolic Volume MOD 4C 58.7 cm??? LV Systolic Volume MOD 4C 22.4 cm??? LV Ejection Fraction MOD 4C 61.9 % LV Cardiac Index MOD 4C 1779.1 cm???/min???m??? LV Diastolic Length 4C 7.2 cm LV Systolic Length 4C 5.8 cm LV Diastolic Volume MOD 2C 70.8 cm??? LV Systolic Volume MOD 2C 25.7 cm??? LV Ejection Fraction MOD 2C 63.7 % LV Cardiac Index MOD 2C 2211.4 cm???/min???m??? LV Diastolic Length 2C 7.5 cm LV Systolic Length 2C 5.7 cm LA Volume 43.2 cm??? 18 - 58 / 22 - 52 cm??? LA Volume Index 33.7 cm???/m??? 16 - 28 cm???/m??? DOPPLER AV Peak Velocity 166.2 cm/s AV Peak Gradient 11.0 mmHg AV Mean Velocity 106.5 cm/s AV Mean Gradient 5.3 mmHg AV Velocity Time Integral 37.3 cm LVOT Peak Velocity 105.2 cm/s LVOT Peak Gradient 4.4 mmHg LVOT Velocity Time Integral 23.9 cm LVOT Stroke Volume 66.6 cm??? LVOT Stroke Volume Index 49.5 ml/m??? LVOT Cardiac Index 3264.9 cm???/min???m??? AV Area Cont Eq vti 1.8 cm??? AV Area Cont Eq pk 1.8 cm??? MV Area PHT 4.0 cm??? Mitral E Point Velocity 76.3 cm/s Mitral A Point Velocity 85.8 cm/s Mitral E to A Ratio 0.9 MV Deceleration Time 188.0 ms TR Peak Velocity 255.5 cm/s TR Peak Gradient 26.1 mmHg Right Atrial Pressure 5.0 mmHg Pulmonary Artery Systolic Pressu 31.1 mmHg Right Ventricular Systolic Press 31.1 mmHg PV Peak Velocity 84.4 cm/s PV Peak Gradient 2.8 mmHg FINDINGS Left Ventricle Left ventricular ejection fraction is estimated at 60 %. Left ventricular cavity size normal. Left ventricular wall thickness normal. No obvious regional wall motion abnormalities. Right Ventricle Normal right ventricular size with mildly reduced function. Right ventricular systolic pressure within normal limits. Right Atrium Normal right atrial size. Left Atrium Mildly increased left atrial volume. Mitral Valve Mitral valve thickened. No evidence for mitral valve prolapse. No mitral stenosis. Trace mitral regurgitation. Aortic Valve Trileaflet aortic valve. Diffuse thickening (sclerosis) of the aortic valve cusps without reduced excursion. No aortic valve stenosis or regurgitation. Tricuspid Valve Structurally normal tricuspid valve. No tricuspid stenosis. Mild tricuspid regurgitation. Pulmonic Valve Structurally normal pulmonic valve. No pulmonic stenosis. Trace pulmonic regurgitation. Pericardium No pericardial effusion. Aorta Aortic annulus normal. CONCLUSIONS Normal LV function Previewed by: Dr. Nickolas Miller MD (Electronically Signed) Final Date: 24 June 2024 11:02
[2024-06-24 12:08] VITALS: BMI 16.0
--- NOTE | 2024-06-24 13:51 | P.PN ---
Subjective HISTORY OF PRESENT ILLNESS: This is a 74-year-old female with a past medical history significant for coronary artery disease with previous stenting and CABG, hypertension, hyperlipidemia, and COPD. Patient follows with a laborer high density press out of town, Dr. Bran Brink at [facility]. We have been asked to see the patient in consultation for CHF. Patient examined at the bedside. Patient presented to the hospital with a chief complaint of shortness of breath. Patient states she has been feeling short of breath for approximately a day and a half. She reports chills but no fever. She denies any chest pain or pressure. Denies any dizzine ss or lightheadedness. The patient is a current cigarette smoker and smokes about a half a pack per day. DIAGNOSTICS: - EKG reveals sinus mechanism with no signs of acute ischemia. Nonspecific ST-T wave changes. - Chest xray findings consistent with CHF exacerbation/fluid overload state - Chest CTA: Negative for pulmonary embolism. 2 cm right lower lobe nodule, marked generalized anasarca with small bilateral pleural effusions. - Laboratory data: WBC 10.1. Hemoglobin 11.1. Platelet count 487. D-dimer 2.08. Sodium 137. Potassium 3.8. BUN 12. Creatinine 0.58. Troponin 0.047. 0.031. proBNP 3640. - Current home cardiac medications include aspirin 81 mg daily, Plavix 75 mg daily, losartan 50 mg daily, Lipitor 80 mg at night, metoprolol tartrate 50 mg twice a day -No previous echocardiogram, stress test, or cardiac catheterization available in EMR for review 06/24/2024 Patient examined this morning at the bedside. Patient currently denies chest pain or pressure. She denies any shortness of breath. She remains on IV Lasix. Echocardiogram completed revealing ejection fraction 60%, trace MR, mild TR. PHYSICAL EXAM: VITAL SIGNS: Reviewed. GENERAL: Well-developed in no acute distress. HEENT: Head is normocephalic. Pupils are equal, round. Sclerae anicteric. Mucous membranes of the mouth are moist. Neck supple. No JVD or thyromegaly LUNGS: Respirations even and unlabored. Lungs diminished with fine crackles at the bases HEART: Regular rate and rhythm. S1 and S2 heard. ABDOMEN: Soft. Nondistended. Nontender. EXTREMITIES: Normal range of motion. No clubbing or cyanosis. Peripheral pulses intact. Trace bilateral lower extremity edema NEUROLOGIC: Awake and alert. Oriented x 3. ASSESSMENT: Shortness of breath Mild acute congestive heart failure with preserved EF 2 cm right lower lobe lung nodule Minimally elevated troponin, type II FL secondary to oxygen supply/demand mismatch, no evidence of acute coronary syndrome Coronary artery disease with previous stenting and CABG Hypertension Hyperlipidemia COPD Nicotine dependence, patient smokes half a pack per day PLAN: Discontinue IV Lasix. Begin oral Lasix 20 mg daily Continue additional cardiac medications Patient does not need to be resumed out of Plavix from a cardiac standpoint as she reports her CABG and stenting was greater than 12 months ago Continue telemetry monitoring Smoking cessation recommended. Patient to be referred to [place] quit line upon discharge. Patient may be discharged from a cardiac standpoint She is to follow-up postdischarge with her primary laborer high density press, Dr. Brink Nurse practitioner note has been reviewed by physician. Signing provider agrees with the documented findings, assessment, and plan of care documented by SINGLE STAYER OPERATOR as a scribe Objective - Vital Signs Vital signs: Vital Signs Temp 97.6 F 06/24/24 11:21 Pulse 68 06/24/24 11:51 Resp 18 06/24/24 11:21 BP 130/65 06/24/24 11:21 Pulse Ox 99 06/24/24 11:21 FiO2 Intake & Output 06/23/24 06/24/24 06/24/24 18:59 06:59 18:59 Intake Total 256 Balance 256 Weight 42.2 kg 42.2 kg Intake: IV 20 Invasive Line 1 20 Oral 236 Other: Voiding Method Toilet Toilet - Labs CBC & Chem 7: 06/23/24 06:14 06/24/24 07:00 Labs: Abnormal Lab Results - Last 24 Hours (Table) 06/23/24 06/24/24 Range/Units 15:09 07:00 Sodium 135 L (137-145) mmol/L Potassium 3.2 L (3.5-5.1) mmol/L Chloride 92 L (98-107) mmol/L Carbon Dioxide 35 H (22-30) mmol/L Glucose 105 H (74-99) mg/dL Calcium 8.1 L (8.4-10.2) mg/dL Troponin I 0.045 H* (0.000-0.034) ng/mL
[2024-06-24] MEDS ORDERED: Potassium Replacement Protocol 1 EACH MISC MISCELLANE PRN (21:30)
[2024-06-24] MEDS: POTASSIUM CHLORIDE ER 20 MEQ TAB.ER PO SCH (22:03)
--- NOTE | 2024-06-25 05:42 | P.PN ---
Subjective Progress Note Date: 06/24/24 74-year-old female came in with complaints of shortness of breath has been going on for about a week on and off. Patient denying orthopnea paroxysmal nocturnal dyspnea. Patient does smoke presently smokes about 10 cigarettes/day. Clinical exam patient does not have any significant wheezing although diminished air entry to bilateral lung patel. Patient had a CT of the chest which showed bilateral pleural effusions mild pulmonary edema patient has a BNP of 43,000. Patient does not have any history of congestive heart failure does have history of coronary artery disease follows up with outside carpentry supervisor. Patient is also found to have a 2 cm nodule/mass in the lung. No pneumonia on the chest x- ray or CT of the chest. Patient does not use any oxygen at home presently on 2 L of oxygen here 06/24/2024 Patient is seen in follow-up this morning with pulmonary and cardiology following. Patient was noted to have a nodule on imaging of the lung and pulmonary evaluated the patient recommending outpatient PET scan and further testing and evaluation on discharge. Cardiology following and patient maintained on IV Lasix and considering transitioning to oral Lasix. Swelling has improved although patient continues to remain on 2 L via nasal cannula. Will attempt to wean FiO2 as tolerated and encouraged to increase activity as tolerated as well. Plan will be for patient to return home on discharge. Review of systems: Constitutional: No reports of fatigue, fever, or chills Cardiovascular: No reports of chest pain or palpitations Respiratory: No reports of worsening shortness of breath GI: No reports of nausea, vomiting, or diarrhea : No reports of dysuria or retention Neurovascular: reports of generalized weakness All medications have been reviewed PHYSICAL EXAMINATION: GENERAL: The patient is alert and oriented x3, not in any acute distress. Thin built female, elderly HEENT: Pupils are round and equally reacting to light. EOMI. No scleral icterus. No conjunctival pallor. Normocephalic, atraumatic. No pharyngeal erythema. No thyromegaly. CARDIOVASCULAR: S1 and S2 muffled PULMONARY: Chest is clear to auscultation, no wheezing or crackles. Diminished air entry to bilateral lung patel. ABDOMEN: Soft, nontender, nondistended, normoactive bowel sounds. No palpable organomegaly. MUSCULOSKELETAL: No joint swelling or deformity. EXTREMITIES: No cyanosis, clubbing, or pedal edema. NEUROLOGICAL: Gross neurological examination did not reveal any focal deficits. SKIN: No rashes. Assessment and plan -Acute hypoxemia: Possibly of congestive heart failure mild acute exacerbation. Cardiology following and patient was maintained on IV Lasix and being transition to oral Lasix -2 cm nodule/mass pulmonary following recommending outpatient PET scan. Patient was made aware of this while she was at [facility] -Coronary artery disease history, patient to continue on home medications -Mild elevation of troponin, likely type II per cardiology -Continued ongoing nicotine dependence -DVT prophylaxis -GI prophylaxis -Full code Plan: Patient currently continued on IV Lasix and being transition to oral Lasix although still requiring 2 L of oxygen via nasal cannula. Discussed with nursing staff and patient about weaning as patient does not normally wear oxygen outpatient. Encouraged increase activity as tolerated and will follow-up in the a.m. regarding discharge planning Pulmonary has evaluated the patient recommending outpatient follow-up for PET scan there is concerns of a nodule noted on imaging. Will have PT/OT therapy evaluate and discuss discharge planning in the next 24 hours The impression and plan of care has been dictated by Teresa Nix, Nurse Practitioner as directed. Dr. Maria Teresa MD I have performed a history and examination and MDM of this patient, discussed the same with the dictator, and agree with the dictator's assessment and plan as written ,documented as a scribe. Based on total visit time, I have performed more than 50% of the visit. Objective - Vital Signs Vital signs: Vital Signs Temp 97.6 F 06/24/24 08:00 Pulse 60 06/24/24 08:00 Resp 16 06/24/24 08:00 BP 148/71 06/24/24 08:00 Pulse Ox 93 L 06/24/24 08:00 FiO2 Intake & Output 06/23/24 06/24/24 06/24/24 18:59 06:59 18:59 Intake Total 128 Balance 128 Weight 42.2 kg Intake: IV 10 Invasive Line 1 10 Oral 118 Other: Voiding Method Toilet Toilet - Labs CBC & Chem 7: 06/23/24 06:14 06/24/24 07:00 Labs: Abnormal Lab Results - Last 24 Hours (Table) 06/23/24 06/24/24 Range/Units 15:09 07:00 Sodium 135 L (137-145) mmol/L Potassium 3.2 L (3.5-5.1) mmol/L Chloride 92 L (98-107) mmol/L Carbon Dioxide 35 H (22-30) mmol/L Glucose 105 H (74-99) mg/dL Calcium 8.1 L (8.4-10.2) mg/dL Troponin I 0.045 H* (0.000-0.034) ng/mL
[2024-06-25 09:16] VITALS: TEMP 98
[2024-06-25 10:46] LABS: African American GFR (CKD) >90 (>60 ml/min/1.73 sqM); Anion Gap -2 mmol/L; Blood Urea Nitrogen 13 mg/dL (7-17); Calcium 8.5 mg/dL (8.4-10.2); Carbon Dioxide 37 mmol/L (22-30); Chloride 101 mmol/L (98-107); Glucose 99 mg/dL (74-99); Magnesium 1.6 mg/dL (1.6-2.3); Non-African American GFR(CKD) 87 (>60 ml/min/1.73 sqM); Potassium 3.9 mmol/L (3.5-5.1); Sodium 136 mmol/L (137-145)
[2024-06-25 12:30] VITALS: BP 151/68; PULSE 83; RESP 18
[2024-06-25] MEDS: MAGNESIUM SULFATE-D5W PMX 1 GM in DEXTROSE/WATER 1 100ML.BAG IVPB ONE (13:02)
--- NOTE | 2024-06-25 13:15 | P.PN ---
Subjective HISTORY OF PRESENT ILLNESS: This is a 74-year-old female with a past medical history significant for coronary artery disease with previous stenting and CABG, hypertension, hyperlipidemia, and COPD. Patient follows with a braided band assembler out of town, Dr. Bran Brink at [facility]. We have been asked to see the patient in consultation for CHF. Patient examined at the bedside. Patient presented to the hospital with a chief complaint of shortness of breath. Patient states she has been feeling short of breath for approximately a day and a half. She reports chills but no fever. She denies any chest pain or pressure. Denies any dizzine ss or lightheadedness. The patient is a current cigarette smoker and smokes about a half a pack per day. DIAGNOSTICS: - EKG reveals sinus mechanism with no signs of acute ischemia. Nonspecific ST-T wave changes. - Chest xray findings consistent with CHF exacerbation/fluid overload state - Chest CTA: Negative for pulmonary embolism. 2 cm right lower lobe nodule, marked generalized anasarca with small bilateral pleural effusions. - Laboratory data: WBC 10.1. Hemoglobin 11.1. Platelet count 487. D-dimer 2.08. Sodium 137. Potassium 3.8. BUN 12. Creatinine 0.58. Troponin 0.047. 0.031. proBNP 3640. - Current home cardiac medications include aspirin 81 mg daily, Plavix 75 mg daily, losartan 50 mg daily, Lipitor 80 mg at night, metoprolol tartrate 50 mg twice a day -No previous echocardiogram, stress test, or cardiac catheterization available in EMR for review 06/24/2024 Patient examined this morning at the bedside. Patient currently denies chest pain or pressure. She denies any shortness of breath. She remains on IV Lasix. Echocardiogram completed revealing ejection fraction 60%, trace MR, mild TR. 06/25/2024 Patient examined this morning at the bedside. Patient currently denies chest pain or pressure. She denies any shortness of breath. Remains on oral diuretics. PHYSICAL EXAM: VITAL SIGNS: Reviewed. GENERAL: Well-developed in no acute distress. HEENT: Head is normocephalic. Pupils are equal, round. Sclerae anicteric. Mucous membranes of the mouth are moist. Neck supple. No JVD or thyromegaly LUNGS: Respirations even and unlabored. Lungs diminished with fine crackles at the bases HEART: Regular rate and rhythm. S1 and S2 heard. ABDOMEN: Soft. Nondistended. Nontender. EXTREMITIES: Normal range of motion. No clubbing or cyanosis. Peripheral pulses intact. Trace bilateral lower extremity edema NEUROLOGIC: Awake and alert. Oriented x 3. ASSESSMENT: Shortness of breath Mild acute congestive heart failure with preserved EF 2 cm right lower lobe lung nodule Minimally elevated troponin, type II OH secondary to oxygen supply/demand mismatch, no evidence of acute coronary syndrome Coronary artery disease with previous stenting and CABG Hypertension Hyperlipidemia COPD Nicotine dependence, patient smokes half a pack per day PLAN: Continue oral Lasix 20 mg daily Continue additional cardiac medications Patient does not need to be resumed out of Plavix from a cardiac standpoint as she reports her CABG and stenting was greater than 12 months ago Continue telemetry monitoring Smoking cessation recommended. Patient to be referred to [place] quit line upon discharge. Patient may be discharged from a cardiac standpoint She is to follow-up postdischarge with her primary braided band assembler, Dr. Brink We will sign off. Please reconsult if needed. Nurse practitioner note has been reviewed by physician. Signing provider agrees with the documented findings, assessment, and plan of care documented by OCCUPATIONAL THERAPY INSTRUCTOR as a scribe Objective - Vital Signs Vital signs: Vital Signs Temp 98.0 F 06/25/24 08:00 Pulse 83 06/25/24 12:29 Resp 18 06/25/24 12:29 BP 151/68 06/25/24 12:29 Pulse Ox 95 06/25/24 12:29 FiO2 Intake & Output 06/24/24 06/25/24 06/25/24 18:59 06:59 18:59 Intake Total 610 10 236 Balance 610 10 236 Weight 42.2 kg 42.6 kg Intake: IV 20 10 Invasive Line 1 20 10 Oral 590 236 Other: Voiding Method Toilet Toilet Toilet # Voids 3 - Labs CBC & Chem 7: 06/23/24 06:14 06/25/24 09:16 Labs: Abnormal Lab Results - Last 24 Hours (Table) 06/25/24 Range/Units 09:16 Sodium 136 L (137-145) mmol/L Carbon Dioxide 37 H (22-30) mmol/L
--- NOTE | 2024-06-25 13:34 | P.PN ---
Subjective Progress Note Date: 06/25/24 Principal diagnosis: Shortness of breath. Patient is 74-year-old female with past medical history significant for hypertension, hyperlipidemia, coronary artery disease with previous CABG, current ongoing tobacco dependence. Of note, recently admitted inpatient to [facility] had GI bleeding and underwent colonoscopy. Since then she has been reporting increasing shortness of breath, as well as, lower extremity edema bilaterally. Denies any history of heart failure. Denies chest pain, heart palpitations, lightheadedness or syncopal events, orthopnea, PND. Denies any infectious symptoms. Denies history of diagnosed COPD or asthma. She does have a significant smoking history of greater than 50 pack years. Chest x- ray done arrival showing a stable cardiac silhouette, mild pulmonary vascular congestion, blunting of bilateral costophrenic angles concerning for trace to small bilateral pleural effusions. NT proBNP was elevated at 3640. Troponin is also mildly elevated at 0.047, 0.03, and 0.045 respectively. EKG: Sinus rhythm, 77 bpm, no acute ischemic changes. D-dimer also elevated at 2.08. This prompted CT angio protocol which did not show any filling defects concerning for pulmonary emboli. There was a 2 cm right lower lobe spiculated nodule concerning for possible malignancy. Background emphysema. Also, generalized anasarca and small bilateral pleural effusions. CBC: WBC count 10, hemoglobin 11, hematocrit 35.9, platelets 47. CMP: Sodium 137, potassium 3.8, chloride 101, serum bicarb 35, BUN 12, creatinine 0.58, glucose 94. Lactic 0.8. Magnesium 1.3. Patient is currently being evaluated on selective care unit. She is on 2 L/min nasal cannula in no acute respiratory distress. SpO2 95%. Vital signs are stable. I did speak to her at length about the abnormal CAT scan findings and concern for possible malignancy. She reports a 50 pound weight loss over the last couple years. Has significant smoking history as stated above. She states that even if it were malignancy that she is unsure if she would want to have any bronchoscopy with biopsy or treatment. She would like to think about this. Unfortunately, her approximately 1 week ago. She is a bit overwhelmed. In the meantime she continues on Lasix 20 mg twice daily. She likely has some undiagnosed COPD. Appears stable on my examination. She is empirically covered on azithromycin. Progress note dated June 25, 2024. 74-year-old female seen in consultation yesterday. The patient likely has a history of significant COPD. In addition, she had an abnormal CT scan. No evidence of pulmonary embolism, but did show a 2 cm right lower lobe spiculated lesion, consistent with possible bronchogenic carcinoma. The patient will need an outpatient PET scan. She is currently on 2 L nasal cannula. No IV fluids. Her breathing is much improved. She feels less short of breath. Current labs include a sodium of 136, potassium 3.9, chlorides 101, CO2 37, BUN 13, creatinine 0.64. Magnesium is 1.6. Procalcitonin level was 0.07. Objective - Vital Signs Vital signs: Vital Signs Temp 98.0 F 06/25/24 08:00 Pulse 83 06/25/24 12:29 Resp 18 06/25/24 12:29 BP 151/68 06/25/24 12:29 Pulse Ox 95 06/25/24 12:29 FiO2 Intake & Output 06/24/24 06/25/24 06/25/24 18:59 06:59 18:59 Intake Total 610 10 236 Balance 610 10 236 Weight 42.2 kg 42.6 kg Intake: IV 20 10 Invasive Line 1 20 10 Oral 590 236 Other: Voiding Method Toilet Toilet Toilet # Voids 3 - Exam No acute distress, oriented 3. Currently on 2 L. No conversational dyspnea. HEENT examination is grossly unremarkable. Mucous membranes are moist. No oral lesions. Neck supple. Full range of motion. No adenopathy thyromegaly or neck vein distention. Cardiovascular examination reveals regular rhythm rate. S1-S2 normal. No S3 or S4. No discernible murmur noted. Lungs reveal scattered mild rhonchi. No wheezes. Breath sounds equal. Breath sounds diminished throughout. Abdomen soft bowel sounds are heard. No masses or tenderness. Extremities are intact. No cyanosis clubbing or edema. Skin is without rash or lesion. Neurologic examination is brief but nonfocal. - Labs CBC & Chem 7: 06/23/24 06:14 06/25/24 09:16 Labs: Abnormal Lab Results - Last 24 Hours (Table) 06/25/24 Range/Units 09:16 Sodium 136 L (137-145) mmol/L Carbon Dioxide 37 H (22-30) mmol/L Assessment and Plan Assessment: Acute hypoxemic respiratory failure, currently on 2 L/min nasal cannula, chest x-ray done on admission showing stable cardiac silhouette, pulmonary vascular congestion, and small bilateral pleural effusions. NT proBNP 3640. Suspect acute exacerbation of congestive heart failure, unknown type. Elevated troponins, rule out non-ST elevation UT. Possible acute COPD exacerbation. Chronic ongoing tobacco dependence, with a significant smoking history of 50 pack years. Pulmonary nodule, 2 cm spiculated right lower lobe nodule, concerning for possible malignancy. History of coronary artery disease with previous CABG. History of hyperlipidemia. Hypertension. History of GI bleed with recent colonoscopy. Bereavement and recent of spouse. Plan: Plan dated June 25, 2024. The patient's overall pattern is most consistent with fluid overload. The patient likely does have COPD from heavy tobacco use. It does not appear that the patient has pneumonia. Procalcitonin level is normal. Antibiotics can be discontinued. Additional recommendations and suggestions are forthcoming. The patient will need an outpatient PET scan. I will see her in the office, after discharge. There is she will have complete pulmonary function test. Time with Patient: Less than 30
--- NOTE | 2024-06-25 13:38 | P.PN ---
Progress Note - Text Progress Note Date: 06/25/24 Patient will require oxygen on discharge via nasal cannula at 2 L to manage COPD as well as CHF.
--- NOTE | 2024-06-26 10:18 | P.DS ---
Providers Date of admission: 06/23/24 08:17 Expected date of discharge: 06/25/24 Attending physician: Catia Guidry Consults: 06/23/24 08:16 Consult Physician Routine Consulting Provider: Yasir Moran Reason/Comments: COPD, Lung mass Do you want consulting provider notified?: Yes Primary care physician: Stated None Hospital Course: Final diagnosis -Acute hypoxemia: Secondary to acute on chronic congestive heart failure mild acute exacerbation. -2 cm nodule/mass pulmonary following recommending outpatient PET scan. Patient was made aware of this while she was at [facility] -Coronary artery disease history, patient to continue on home medications -Mild elevation of troponin, likely type II per cardiology -Continued ongoing nicotine dependence -DVT prophylaxis -GI prophylaxis -Full code Discharge disposition Patient is being discharged in a stable condition with guarded prognosis to home. Patient will follow-up with pcp to establish in the outpatient setting upon discharge. Patient is to continue with outpatient follow-up with pulmonary as scheduled. Patient to follow-up with macaroni maker outpatient as well. Total time taken is greater than 35 minutes. Hospital course This is a 74-year-old female who was recently admitted with shortness of breath concerns of CHF exacerbation. Patient maintained on IV diuresis and transition to oral evaluated by cardiology as well as pulmonary. Patient is noted to have an nodule or mass in the lungs and will need outpatient testing including PET scan. This was discussed with pulmonary and will follow-up outpatient. Patient reports she has no primary care provider and does not feel the need to have 1 as she reports she has a macaroni maker. Patient provided resources for outpatient primary care providers and encouraged to establish. Patient reports to feeling improved and would like to go home. Patient continuing to require oxygen and will be discharged home with home oxygen at 2 L via nasal cannula to manage COPD/CHF. Please refer to other consultation notes for further HPI. Currently no reports of chest pain, shortness of breath, or palpitations. Patient is afebrile. No reports of nausea or vomiting and patient is tolerating diet. Patient will be discharged home today. Patient reports she is going to stay with her son. Guarded prognosis and high risk for readmissions given patient's comorbidities. Physical exam: Gen: This is a 74-year-old female who is awake, alert and oriented x 3, well- developed, thin built, elderly appearing HEENT: Head is atraumatic, normocephalic. Pupils equal, round. Sclerae is anicteric. NECK: Supple. No JVD. No lymphadenopathy. No thyromegaly. LUNGS: Clear to auscultation. No wheezes or rhonchi. No intercostal retractions. HEART: Regular rate and rhythm. No murmur. ABDOMEN: Soft. Bowel sounds are present. No masses. No tenderness. EXTREMITIES: No pedal edema. No calf tenderness. NEUROLOGICAL: Patient is awake, alert and oriented x3. Cranial nerves 2 through 12 are grossly intact. Please refer to medication reconciliation sheet for a list of medications. The impression and plan of care has been dictated by Teresa Nix, Nurse Practitioner as directed. Dr. Maria Teresa MD I have performed a history and examination and MDM of this patient, discussed the same with the dictator, and agree with the dictator's assessment and plan as written ,documented as a scribe. Based on total visit time, I have performed more than 50% of the visit. Patient Condition at Discharge: Stable Plan - Discharge Summary Discharge Rx Participant: Yes New Discharge Prescriptions: New Furosemide [Lasix] 20 mg PO DAILY #30 tab Budesonide-Formot 160-4.5 Mcg [Symbicort 160-4.5 Mcg Inhaler] 2 puff INHALATION RT-BID each Acetaminophen Tab [Tylenol] 650 mg PO Q4HR PRN tab PRN Reason: Mild Pain Or Fever > 100.5 Nicotine 21Mg/24Hr Patch [Habitrol] 1 patch TRANSDERM DAILY patch predniSONE See Taper PO DIRECTED #30 tab Continue Metoprolol Tartrate [Lopressor] 50 mg PO BID Atorvastatin Calcium [Lipitor] 80 mg PO HS Clopidogrel [Plavix] 75 mg PO DAILY Aspirin EC [Ecotrin Low Dose] 81 mg PO DAILY Pantoprazole [Protonix] 40 mg PO DAILY Losartan [Cozaar] 50 mg PO DAILY Discharge Medication List Aspirin EC [Ecotrin Low Dose] 81 mg PO DAILY 06/23/24 [History] Atorvastatin Calcium [Lipitor] 80 mg PO HS 06/23/24 [History] Clopidogrel [Plavix] 75 mg PO DAILY 06/23/24 [History] Losartan [Cozaar] 50 mg PO DAILY 06/23/24 [History] Metoprolol Tartrate [Lopressor] 50 mg PO BID 06/23/24 [History] Pantoprazole [Protonix] 40 mg PO DAILY 06/23/24 [History] Acetaminophen Tab [Tylenol] 650 mg PO Q4HR PRN tab 06/25/24 [Rx] Budesonide-Formot 160-4.5 Mcg [Symbicort 160-4.5 Mcg Inhaler] 2 puff INHALATION RT-BID each 06/25/24 [Rx] Furosemide [Lasix] 20 mg PO DAILY #30 tab 06/25/24 [Rx] Nicotine 21Mg/24Hr Patch [Habitrol] 1 patch TRANSDERM DAILY patch 06/25/24 [Rx] predniSONE See Taper PO DIRECTED #30 tab 06/25/24 [Rx] Follow up Appointment(s)/Referral(s): Yasir Moran DO [Doctor of Osteopathic Medicine] - 07/06/24 1:15 pm Deborah Whaley MD [STAFF PHYSICIAN] - 1 Week (office did not answer please call and make appointment) Patient Instructions/Handouts: Heart Failure (DC), COPD (Chronic Obstructive Pulmonary Disease) (DC) Discharge/Stand Alone Forms: Who Do I Call?, Outpatient Counseling, [facility] Area PCPs Discharge Disposition: HOME SELF-CARE
== END 2024-06-25 16:31 | disposition home or self-care (01) | DRG 280 ==
LOC: EC 05:37 → 3SCARD 08:17
PROVIDERS: ADMIT Hospitalist; ATTEND Hospitalist
DX: I11.0 Hypertensive heart disease with heart failure (principal); I50.31 Acute diastolic (congestive) heart failure; I21.A1 Myocardial infarction type 2; C34.31 Malignant neoplasm of lower lobe, right bronchus or lung; R09.02 Hypoxemia; Z63.4 Disappearance and death of family member; E83.42 Hypomagnesemia; I25.10 Atherosclerotic heart disease of native coronary artery without angina pectoris; Z95.1 Presence of aortocoronary bypass graft; R91.1 Solitary pulmonary nodule; R09.89 Other specified symptoms and signs involving the circulatory and respiratory systems; F17.210 Nicotine dependence, cigarettes, uncomplicated; E78.5 Hyperlipidemia, unspecified; I08.1 Rheumatic disorders of both mitral and tricuspid valves; J43.9 Emphysema, unspecified; Z79.02 Long term (current) use of antithrombotics/antiplatelets; Z79.82 Long term (current) use of aspirin; Z79.899 Other long term (current) drug therapy; Z95.5 Presence of coronary angioplasty implant and graft; Z71.6 Tobacco abuse counseling
CPT/HCPCS: 36415; 71046; 71275; 80048; 80053; 83605; 83735; 83880; 84145; 84484; 85025; 85379; 85610; 85730; 93306; 94640; 94760; 96374; 99285